=== PATIENT | male | born 1955 | race Caucasian/White ===

== ENCOUNTER → 2016-04-06 | Outpatient (CLI) | payer BC ==
[~2016-04-06] MED LIST: ASPIRIN 32325 MG/TAB PO; ASPIRIN 81M81 MG/TA2 PO; BACTRIM DS 8001 TAB PO; FLOMAX 0.40.4 MG/CAP PO; LIPITOR20 MG PO; NO HOME MEDICATIONS; NORCO 325 MG-51 TAB PO; PRILOSEC 20MG20 MG PO; SENOKOT S 50 MG1 TAB PO; TOPROL XL 25MG25 MG PO
== END ==
LOC: COL.RAD 13:00
DX: M75.121 Complete rotator cuff tear or rupture of right shoulder, not specified as traumatic (principal); M19.011 Primary osteoarthritis, right shoulder

== ENCOUNTER → 2016-08-24 | Outpatient (CLI) | payer BC | LOC: COL.RAD 06:51 | DX: N28.1 Cyst of kidney, acquired (principal); N28.9 Disorder of kidney and ureter, unspecified; K44.9 Diaphragmatic hernia without obstruction or gangrene; N40.0 Benign prostatic hyperplasia without lower urinary tract symptoms; K57.90 Diverticulosis of intestine, part unspecified, without perforation or abscess without bleeding | CPT/HCPCS: Q9967 ==

== ENCOUNTER → 2018-02-07 | Outpatient (CLI) | payer BC | LOC: MHCPAIN 14:18 | DX: G89.29 Other chronic pain (principal); M79.2 Neuralgia and neuritis, unspecified; R10.817 Generalized abdominal tenderness | CPT/HCPCS: G0463 ==

== ENCOUNTER 2022-06-03 13:38 | Emergency (ER) | payer MEDICARE, BC ==
[~2022-06-03] VITALS: Ht 175.3 cm; Wt 88.6 kg
[2022-06-03 13:48] VITALS: TEMP 98.2
[2022-06-03 16:29] VITALS: BP 136/88; PULSE 73
== END 2022-06-03 16:34 | disposition home or self-care (01) ==
LOC: COL.ER 13:38
DX: S61.210A Laceration without foreign body of right index finger without damage to nail, initial encounter (principal); W26.8XXA Contact with other sharp object(s), not elsewhere classified, initial encounter